=== PATIENT | male | born 1980 | race Caucasian/White ===

== ENCOUNTER 2016-10-04 11:19 | Emergency (ER) | payer OTHER ==
[~2016-10-04] VITALS: Ht 180.3 cm; Wt 104.0 kg
[2016-10-04] MEDS ORDERED: MOTRIN600 MG PO (14:28)
[2016-10-04 15:00] VITALS: BP 128/68
== END 2016-10-04 15:01 | disposition home or self-care (01) ==
LOC: EME 11:19
DX: S16.1XXA Strain of muscle, fascia and tendon at neck level, initial encounter (principal); M62.838 Other muscle spasm
CPT/HCPCS: 72050; 99281; 99283

== ENCOUNTER 2017-07-11 11:29 | Emergency (ER) | payer OTHER ==
[~2017-07-11] VITALS: Ht 180.3 cm; Wt 108.7 kg
[~2017-07-11 11:29] MED LIST: MOTRIN600 MG PO
[2017-07-11] MEDS ORDERED: NORCO 10/3251 TABLET PO (14:56)
[2017-07-11] MEDS ORDERED: MOTRIN600 MG PO (14:56)
[2017-07-11] MEDS ORDERED: FLEXERIL10 MG PO (14:56)
[2017-07-11 15:21] VITALS: BP 130/79
== END 2017-07-11 15:22 | disposition home or self-care (01) ==
LOC: RME 11:29 → EME 11:29 → RME 15:22
DX: M54.31 Sciatica, right side (principal); Z88.8 Allergy status to other drugs, medicaments and biological substances
CPT/HCPCS: 99281; 99284; J1885

== ENCOUNTER 2017-07-15 15:44 | Emergency (ER) | payer OTHER ==
[~2017-07-15] VITALS: Ht 180.3 cm; Wt 109.0 kg
[~2017-07-15 15:44] MED LIST changes: +FLEXERIL10 MG PO; +NORCO 10/3251 TABLET PO
[2017-07-15 19:34] LABS: APPEARANCE CLEAR ((CLEAR)); BILIRUBIN NEGATIVE; BLOOD SMALL; COLOR YELLOW ((YELLOW)); GLUCOSE (STRIP) NEGATIVE; KETONES NEGATIVE; LEUKOCYTES NEGATIVE; NITRITE NEGATIVE; PROTEIN (STRIP) NEGATIVE
[2017-07-15 19:41] LABS: BACTERIA NONE SEEN /HPF; EPITHELIAL CELLS NONE SEEN /HPF; MUCUS TRACE /LPF; RED BLOOD CELLS 0-5 /HPF (0-5); UCUL ADDED? NO; WHITE BLOOD CELLS 0-5 /HPF (0-5)
[2017-07-15] MEDS ORDERED: ROBAXIN500 MG PO (20:26)
[2017-07-15 20:36] VITALS: BP 133/86
== END 2017-07-15 20:37 | disposition home or self-care (01) ==
LOC: EME 15:44
PROVIDERS: Physician Assistant
DX: M54.16 Radiculopathy, lumbar region (principal)
CPT/HCPCS: 81003; 99281; 99283; J1885